=== PATIENT | female | born 1980 | race Two or more races ===

== ENCOUNTER 2023-03-29 12:45 | Emergency (ER) | payer OTHER ==
[~2023-03-29] VITALS: Ht 162.6 cm; Wt 136.0 kg
[2023-03-29 13:24] VITALS: BP 141/78; PULSE 90; RESP 16; TEMP 99.4; O2SAT 97
== END 2023-03-29 15:19 | disposition left against medical advice (07) ==
LOC: ER 12:45
DX: N93.9 Abnormal uterine and vaginal bleeding, unspecified (principal); Z53.21 Procedure and treatment not carried out due to patient leaving prior to being seen by health care provider
CPT/HCPCS: 99281

== ENCOUNTER 2024-06-02 14:17 | Emergency (ER) | payer MEDICAID, OTHER ==
[~2024-06-02] VITALS: Ht 167.6 cm; Wt 136.0 kg
[2024-06-02 14:30] VITALS: O2SAT 98
[2024-06-02 15:13] LABS: CLARITY URINE CLOUDY (CLEAR); COLOR URINE YELLOW (YELLOW); GLUCOSE URINE NEGATIVE (NEGATIVE); KETONES URINE NEGATIVE (NEGATIVE); LEUKOCYTE ESTERASE URINE 3+ (NEGATIVE); NITRITE URINE POSITIVE (NEGATIVE); OCCULT BLOOD URINE 3+ (NEGATIVE); PH URINE 5.5 (4.5-8.0); PROTEIN URINE 1+ (NEGATIVE); SPECIFIC GRAVITY URINE 1.019 (1.005-1.030); UROBILINOGEN URINE 0.2 E.U./dL (0.2-1.0)
[2024-06-02 15:22] LABS: BASOPHILS % 0.5 % (0.0-2.0); EOSINOPHILS % 2.3 % (0.0-5.0); HEMATOCRIT. 42.3 % (36.0-48.0); HEMOGLOBIN. 14.1 g/dL (12.0-16.0); LYMPHOCYTES % 15.9 % (20.0-50.0); MEAN CORPUSCULAR HEMOGLOBIN 30.1 pg (28.0-32.0); MEAN CORPUSCULAR HGB CONC 33.3 g/dL (31.0-37.0); MEAN CORPUSCULAR VOLUME 90.4 fL (81.0-99.0); MEAN PLATELET VOLUME 9.8 fl (7.4-10.4); MONOCYTES % 6.9 % (2.0-8.0); NEUTROPHILS % 74.4 % (40.0-76.0); PLATELET 171 x1000/uL (130-400); RED BLOOD CELL COUNT 4.68 mill/uL (4.2-5.4); RED CELL DISTRIBUTION WIDTH 15.4 % (11.6-14.6); WHITE BLOOD COUNT 4.7 x1000/uL (4.5-11.0)
[2024-06-02 15:28] LABS: CHLORIDE 107 mEq/L (98-107); POTASSIUM 3.8 mEq/L (3.5-5.1); SODIUM 140 mEq/L (136-145)
[2024-06-02 15:29] LABS: CALCIUM 9.1 mg/dL (8.7-10.4); CARBON DIOXIDE 29 mEq/L (21-32)
[2024-06-02 15:32] LABS: BACTERIA URINE 3+; SQUAMOUS EPITHELIAL CELL URINE 1+ /lpf (RARE/1+); YEAST URINE NONE SEEN
[2024-06-02 15:34] LABS: CREATININE 0.8 mg/dL (0.6-1.0); GLUCOSE 96 mg/dL (70-105); UREA NITROGEN BLOOD 8 mg/dL (9-23)
[2024-06-02 15:44] LABS: TROPONIN I HIGH SENSITIVITY < 4 ng/L (3.0-34)
[2024-06-02] MEDS ORDERED: CEPH500T MT (15:57)
[2024-06-02 16:18] VITALS: BP 120/63; PULSE 61; RESP 15; TEMP 36.61404; O2SAT 98
== END 2024-06-02 16:19 | disposition home or self-care (01) ==
LOC: ER 14:17
DX: N39.0 Urinary tract infection, site not specified (principal); R07.89 Other chest pain
CPT/HCPCS: 80048; 81003; 81025; 85025; 85379; 84484; 36415; 71045; 93005; 99285; Z7610